=== PATIENT | male | born 1960 | race African-American/Black ===

== ENCOUNTER 2020-01-20 10:25 | Observation (INO) ==
[2020-01-20 11:35] LABS: Basophils # 0.1 10*3/uL (0.0-0.2); Basophils % 0.4 % (0.0-0.8); Eosinophils # 0.2 10*3/uL (0.0-0.87); Eosinophils % 1.7 % (0.00-10.9); Hematocrit 40.2 VOL% (42.0-52.0); Hemoglobin 12.9 GM/DL (14.0-18.0); Immature Granulocytes % 0.5 %; Immature Granulocytes Absolute 0.06 #; Lymphocytes # 1.2 10*3/uL (1.4-4.0); Lymphocytes % 9.5 % (21.2-54.2); Mean Corpuscular HGB Conc 32.1 GM/DL (32-36); Mean Corpuscular Volume 94.8 FL (87-102); Mean Platelet Volume 10.1 FL (9.6-12.0); Monocytes % 9.5 % (1.7-12.7); Neutrophils % 78.4 % (38.7-73.9); Platelet Count 206 T/CUMM (130-400); Red Blood Count 4.24 MC/CUMM (3.8-5.5); Red Cell Distribution Width 14.7 % (9.3-17.3); White Blood Count 13.1 T/CUMM (4-12)
[2020-01-20 11:57] LABS: Albumin 3.5 G/DL (3.4-5.0); Bilirubin,Total 0.5 MG/DL (0.2-1.0); Calcium 9.2 MG/DL (8.5-10.1); Total Protein 8.3 G/DL (6.4-8.3)
[2020-01-20] MEDS ORDERED: VANCOMYCIN INJ 1,000 MG in SODIUM CHLORIDE 0.9% 250 ML IV STA (12:09)
[2020-01-20] MEDS ORDERED: SODIUM CHLORIDE 0.9% 1,000 ML IV STA (12:15)
[2020-01-20] MEDS ORDERED: BISACODYL 5 MG TABLET PO PRN (13:36)
[2020-01-20] MEDS ORDERED: DEXTROSE 50% 25 GM/50 ML VIAL IV PRN (13:36)
[2020-01-20] MEDS ORDERED: GLUCAGON 1 MG VIAL IM PRN (13:36)
[2020-01-20] MEDS ORDERED: ONDANSETRON 4 MG/2 ML VIAL IV PRN (13:36)
[2020-01-20] MEDS ORDERED: diphenhydrAMINE CAP 25 MG CAPSULE PO PRN (13:36)
[2020-01-20] MEDS ORDERED: ACETAMINOPHEN 325 MG TABLET PO PRN (13:36)
[2020-01-20] MEDS ORDERED: SODIUM CHLORIDE 0.9% 1,000 ML IV SCH (14:00)
[2020-01-20] MEDS: hydroCHLOROthiazide 12.5 MG CAPSULE PO SCH (17:03)
[2020-01-20] MEDS: PIPERACILLIN/TAZOBACTAM 3,375 MG in SODIUM CHLORIDE 0.9% 100 ML IV SCH (17:05)
[2020-01-20] MEDS ORDERED: ENOXAPARIN 40 MG/0.4 ML SYRINGE SUBCUT SCH (21:00)
[2020-01-21] MEDS: PIPERACILLIN/TAZOBACTAM 3,375 MG in SODIUM CHLORIDE 0.9% 100 ML IV SCH ×2 (01:07→09:12)
[2020-01-21 05:17] LABS: Basophils # 0.1 10*3/uL (0.0-0.2); Basophils % 0.5 % (0.0-0.8); Eosinophils # 0.2 10*3/uL (0.0-0.87); Hematocrit 38.8 VOL% (42.0-52.0); Hemoglobin 12.5 GM/DL (14.0-18.0); Immature Granulocytes % 0.4 %; Immature Granulocytes Absolute 0.04 #; Lymphocytes # 1.5 10*3/uL (1.4-4.0); Lymphocytes % 13.6 % (21.2-54.2); Mean Corpuscular HGB Conc 32.2 GM/DL (32-36); Mean Corpuscular Volume 93.7 FL (87-102); Mean Platelet Volume 9.9 FL (9.6-12.0); Monocytes % 10.4 % (1.7-12.7); Neutrophils % 73.1 % (38.7-73.9); Platelet Count 205 T/CUMM (130-400); Red Blood Count 4.14 MC/CUMM (3.8-5.5); Red Cell Distribution Width 14.7 % (9.3-17.3); White Blood Count 10.7 T/CUMM (4-12)
[2020-01-21 05:32] LABS: Calcium 8.5 MG/DL (8.5-10.1); Osmolality,Calculated 268.1 MOS/KG (273-304)
[2020-01-21 08:22] VITALS: BP 141/79
[2020-01-21] MEDS: hydroCHLOROthiazide 12.5 MG CAPSULE PO SCH (09:06)
[2020-01-21] MEDS ORDERED: SKIN HEALING OINT (AQUAPHOR) 50 GM TUBE TOP PRN (10:14)
== END 2020-01-21 12:45 | disposition home or self-care (01) ==
LOC: N.ED 10:25 → N.EDINP 10:25 → N.5E 18:11
PROVIDERS: ADMIT Internal Medicine; ATTEND Internal Medicine